=== PATIENT | female | born 1955 | race Caucasian/White ===

== ENCOUNTER 2019-12-17 08:00 | Emergency (ER) | payer OTHER ==
[~2019-12-17] VITALS: Ht 160 cm; Wt 74.8 kg
== END 2019-12-17 11:15 | disposition home or self-care (01) ==
LOC: ER 08:00
DX: M79.661 Pain in right lower leg (principal); Z88.1 Allergy status to other antibiotic agents; Z88.5 Allergy status to narcotic agent; Z88.8 Allergy status to other drugs, medicaments and biological substances
CPT/HCPCS: 93971; 99283-25